=== PATIENT | female | born 1980 | race African-American/Black ===

== ENCOUNTER 2016-09-28 14:40 | Emergency (ER) | payer OTHER ==
[~2016-09-28] VITALS: Ht 167.6 cm; Wt 107.3 kg
[2016-09-28] MEDS ORDERED: LISI-622 PO (15:12)
[2016-09-28] MEDS ORDERED: METO-323 PO (15:12)
[2016-09-28] MEDS ORDERED: KETO10TA2 PO (15:12)
[2016-09-28] MEDS ORDERED: METH5TAB7 PO (15:12)
[2016-09-28] MEDS ORDERED: ARIP20TA8 PO (15:12)
[2016-09-28] MEDS ORDERED: GABA300C PO (15:12)
[2016-09-28] MEDS ORDERED: CYCL-309 PO (15:12)
[2016-09-28] MEDS ORDERED: GLAT20I SQ (15:12)
[2016-09-28] MEDS: TraMADol HCL 50 MG TABLET PO ONE (16:21)
[2016-09-28] MEDS: DIAZEPAM 5 MG/ML 2 ML SYRINGE IM ONE (16:39)
[2016-09-28 16:46] VITALS: BP 149/98
== END 2016-09-28 16:54 | disposition home or self-care (01) ==
LOC: EMS 14:42
DX: M62.830 Muscle spasm of back (principal); G89.29 Other chronic pain; E03.9 Hypothyroidism, unspecified; I10 Essential (primary) hypertension; G43.909 Migraine, unspecified, not intractable, without status migrainosus; Z88.0 Allergy status to penicillin; Z88.5 Allergy status to narcotic agent; Z91.012 Allergy to eggs; Z88.6 Allergy status to analgesic agent
CPT/HCPCS: 96372; 99283; J1885

== ENCOUNTER 2020-12-12 22:36 | Emergency (ER) | payer OTHER ==
[~2020-12-12] VITALS: Ht 167.6 cm; Wt 100.5 kg
[~2020-12-12 22:36] MED LIST: ARIP20TA PO; CYCL-309 PO; GABA300C PO; GLAT20I SQ; KETO10TA2 PO; LISI-809 PO; METHI5 PO; METO-408 PO
[2020-12-12] MEDS ORDERED: MethylPREDNISolone SOD SUCC 125 MG/2 ML VIAL IVP ONE (23:00)
[2020-12-12] MEDS ORDERED: FAMOTIDINE 10 MG/ML 2 ML VIAL IVP ONE (23:00)
[2020-12-12] MEDS ORDERED: EPINEPHrine 1:1,000 [1 MG/ML] AMP IM ONE (23:15)
[2020-12-12 23:16] LABS: HEMATOCRIT 32.5 % (36-46); HEMOGLOBIN 10.2 g/dL (12.0-16.0); MEAN CORPUSCULAR HEMOGLOBIN 28.2 pg (26.0-34.0); MEAN CORPUSCULAR HGB CONC 31.3 G/dL (31.0-37.0); MEAN CORPUSCULAR VOLUME 90 fL (80-100); PLATELET COUNT (AUTO) 177 K/uL (150-450); RED BLOOD CELL COUNT(AUTO) 3.61 MIL/uL (4.00-5.20); RED CELL DISTRIBUTION WIDTH 14.7 % (11.5-14.5)
[2020-12-12 23:25] LABS: CALCIUM, TOTAL 8.7 mg/dL (8.8-10.5); CARBON DIOXIDE 27 mmol/L (22-29); CREATININE 1.14 mg/dL (0.60-1.30); GLOMERULAR FILTR. RATE CALC > 60 mL/min (>60); GLUCOSE,RANDOM 113 mg/dL (70-110); UREA NITROGEN, BLOOD 14 mg/dL (7-18)
[2020-12-12 23:29] LABS: PROTHROMBIN TIME 10.9 SEC (9.4-11.6)
[2020-12-12] MEDS ORDERED: ONDANSETRON HCL 4 MG/2 ML VIAL IVP ONE (23:30)
[2020-12-12 23:36] LABS: BAND NEUTROPHILS % (MANUAL) 0 % (0-5)
[2020-12-12 23:37] LABS: B-TYPE NATRIURETIC PEPTIDE 6 pg/mL (0-100)
[2020-12-12 23:42] LABS: EOSINOPHILS % (MANUAL) 4 % (1-6); LYMPHOCYTES % (MANUAL) 45 % (22-44); MONOCYTES % (MANUAL) 6 % (2-9); REACTIVE LYMPHOCYTES 8 % (0-0); SEGMENTED NEUTROPHILS % 37 % (40-70)
[2020-12-12 23:50] LABS: ALANINE AMINOTRANSFERASE 27 U/L (12-78); ALBUMIN 3.6 g/dL (3.4-5.0); ALKALINE PHOSPHATASE 80 U/L (46-116); ANION GAP 9 mmol/L (8-16); ASPARTATE AMINOTRANSFERASE 31 U/L (15-37); BILIRUBIN,TOTAL 0.2 mg/dL (0.1-1.0); CHLORIDE 103 mmol/L (98-107); CREATINE KINASE, TOTAL ONLY 582 U/L (26-192); HCG,QUANTITATIVE < 1 mIU/mL (0-6); POTASSIUM 3.3 mmol/L (3.5-5.1); SODIUM SERUM 139 mmol/L (136-145); TOTAL PROTEIN, SERUM 7.5 g/dL (6.4-8.2)
[2020-12-13] MEDS ORDERED: POTASSIUM CHLORIDE 20 MEQ ER TABLET PO ONE (00:45)
[2020-12-13 01:10] VITALS: BP 122/82
[2020-12-13] MEDS ORDERED: ACETAMINOPHEN 500 MG TABLET PO ONE (01:15)
== END 2020-12-13 01:39 | disposition left against medical advice (07) ==
LOC: EMS 22:36
DX: T78.2XXA Anaphylactic shock, unspecified, initial encounter (principal); X58.XXXA Exposure to other specified factors, initial encounter
CPT/HCPCS: 71045; 80053; 82550; 83880; 84484; 84702; 85025; 85610; 85730; 93005; 96372; 96374; 96375; 99285; J2405; J2930; J3490